=== PATIENT | female | born 1965 | race Two or more races ===

== ENCOUNTER 2016-10-07 00:57 | Emergency (ER) | payer MEDICAID ==
[2016-10-07] MEDS ORDERED: LORAZEPAM INJ 2 MG/1 ML VIAL IV ONE ×2 (01:24→02:02)
--- NOTE | 2016-10-07 01:29 | ER Document Report ---
ED General - General Chief Complaint: Asthma Exacerbation Stated Complaint: TROUBLE BREATHING Time Seen by Provider: 10/07/16 01:18 Notes: Patient is a 51-year-old female who presents with difficulty breathing. She is Kiswahili speaking. History at this time is obtained from the son-in-law who speaks good Icelandic. Patient is very anxious and tearful and therefore I do not think she would be able to cooperate with a spool maker at this time. Some loss of patients are having difficulty breathing tonight. She does have a CPAP at home. She does have a history of smoking. He does not think she has had many breathing issues in the past. He does not think she has a history of anxiety or panic attacks. She did have her recent thyroid surgery. She has not had fevers infections. No recent vomiting. He says that she is on pain medication because of the surgery. He says he thinks she has been taking it. TRAVEL OUTSIDE OF THE [place] IN LAST 30 DAYS: No - Related Data Allergies/Adverse Reactions: No Known Allergies Allergy (Verified 06/10/15 22:31) Home Medications: Current Home Medications Albuterol Sulfate [Proair HFA] 2 puff IH Q6HP PRN 10/07/16 [History] Hydrocodone/Acetaminophen [Hydrocodon-Acetaminophen 5-325] 1 - 2 tab PO Q6HP PRN 10/07/16 [History] Past Medical History - Social History Smoking Status: Current Every Day Smoker Frequency of alcohol use: None Drug Abuse: None Family History: Reviewed & Not Pertinent Patient has suicidal ideation: No Patient has homicidal ideation: No Neurological Medical History: Reports: Hx Migraine Renal/ Medical History: Denies: Hx Peritoneal Dialysis Musculoskeltal Medical History: Reports Hx Arthritis, Reports Hx Musculoskeletal Deformity Past Surgical History: Reports: Hx Appendectomy, Hx Section, Hx Orthopedic Surgery, Hx Thyroid Surgery Review of Systems - Review of Systems -: Yes ROS unobtainable due to patient's medical condition - Patient is panicking and does not speak Icelandic. Physical Exam - Vital signs Vitals: Temp Pulse Resp BP Pulse Ox 98.1 F 82 40 H 148/70 H 98 10/07/16 01:05 10/07/16 01:05 10/07/16 01:05 10/07/16 01:05 10/07/16 01:05 - Notes Notes: General Appearance: Well nourished, alert, cooperative, very anxious. Tearful. Tachypneic. Vitals: reviewed, See vital signs table. Head: no swelling or tenderness to the head Eyes: PERRL, EOMI, Conjuctiva clear Mouth: No decreasd moisture Throat: No tonsillar inflammation, No airway obstruction, No lymphadenopathy Neck: Supple, no neck tenderness, well-healed surgical scar on anterior neck. No swelling to neck. Lungs: Lung deutsch are completely clear. Good air exchange bilaterally. Pulse ox is 98 to 100% on room air. Heart: Normal rate, Regular rythm, No murmur, no rub Abdomen: Normal BS, soft, No rigidity, No abdominal tenderness, No guarding, no rebound, no abdominal masses, no organomegaly Extremities: strength 5/5 in all extremities, good pulses in all extremities, no swelling or tenderness in the extremities, no edema. Skin: warm, dry, appropriate color, no rash Neuro: Awake and alert. Course - Re-evaluation Re-evalutation: 10/07/16 02:13 After the Ativan patient is much more calm. I am able to get more information from her now. Family members in the room and is able to interpret. Patient says it hurts whenever she takes a deep breath on the left side. She has some pain left side of her chest but is much worse and seems to be exacerbated by the deep breaths. Symptoms that started tonight. On reevaluation her lung deutsch remain completely clear. Oxygen saturation was still 98% on room air. Due to her recent surgery and pleuritic chest pain I will obtain a CTA of her chest. We will check cardiac enzymes. Her EKG does not show any ischemic changes. She does have right bundle branch block. - Vital Signs Vital signs: Temp Pulse Resp BP Pulse Ox 98.1 F 82 14 119/77 97 10/07/16 01:05 10/07/16 01:05 10/07/16 04:15 10/07/16 04:00 10/07/16 04:15 - Laboratory Result Diagrams: 10/07/16 01:26 10/07/16 01:26 Laboratory results interpreted by me: 10/07/16 10/07/16 10/07/16 01:26 01:26 01:26 WBC 11.1 H Hgb 15.8 H Chloride 108 H Glucose 112 H Calcium 10.7 H Direct Bilirubin 0.5 H ALT 55 H - EKG Interpretation by Me Additional EKG results interpreted by me: 10/07/16 02:15 EKG is reviewed and interpreted by me. EKG shows normal sinus rhythm with rate of [address] segment elevation or depression. Patient does have a right bundle branch block. I do not have an old EKG for comparison. WV intervals within normal range. QTc intervals within normal range. QRS duration is prolonged. - Transfer of Care Notes: 10/07/16 04:28 The initial chief complaint with possible asthma exacerbation. Patient actually does not have a history of asthma. She does have history of smoking. Her doctor placed her on prednisone on August 25. She did bring the prescription bottle. The patient's son is a very good spool maker speaks good Icelandic. I did eventually attempt use [employer] to have an official medical tech. The spool maker I got with [employer] was not very efficient. I would ask a question the patient would give me a long answer that was several sentences long and then the spool maker would translate that into 2-3 words of Icelandic. I would ask a question to the patient and spool maker would not always asked a question and when that would prompt spool maker to ask a question she would then ask me again what I asked. There is obviously some barrier with spool maker herself. I therefore discontinue using the spool maker and asked the son if he would continue to interpret for me and he was glad to do so. The son would repeat things as I asked them and seemed very appropriate in his interpretation was definitely much better than the official medical tech provided by [employer] spool maker services. Patient says tonight she started feeling more short of breath. She became very upset and scared. She noticed pain in the left side of her chest every time she took a deep breath and therefore came to the ER. When she arrived she is very tearful and panicky. The Ativan did help improve that significantly. Patient's oxygenation in triage was 91%; however, when we placed her on a monitor with a normal Pap her oxygenation was always 98 to 100% while on room air. She never had an oxygen deficit. Her EKG and cardiac enzymes are completely negative. I did obtain a CTA because of the pleuritic chest pain and recent surgery. This was also negative. She is a smoker. The son says she smokes a lot. I suspect that she most likely has pleurisy. I will place her on Naprosyn. However preferred to take this with food. Informed the son that she should follow-up with her doctor on Sunday. I informed him to return to the ER if she has worsening difficulty breathing, worsening pain, fevers, or feels unwell. Patient and son agree with the plan she will be discharged home. Dictation of this chart was performed using voice recognition software; therefore, there may be some unintended grammatical errors. Discharge - Discharge Clinical Impression: Pleurisy Dyspnea Qualifiers: Dyspnea type: unspecified Qualified Code(s): R06.00 - Dyspnea, unspecified Condition: Good Disposition: HOME, SELF-CARE Additional Instructions: Please take the medication as prescribed. Please return to the ER immediately if you develop worsening difficulty breathing, fevers, or feel unwell. Please follow up with your doctor on Sunday for close reevaluation. Please take the medication with food. Prescriptions: Naproxen [Naprosyn 250 mg Tablet] 250 mg PO BID #20 tablet Forms: Return to Work
[2016-10-07 01:50] LABS: ABSOLUTE BASOPHILS # (AUTO) 0.1 10^3/uL (0.0-0.2); ABSOLUTE EOSINOPHILS # (AUTO) 0.2 10^3/uL (0.0-0.6); ABSOLUTE LYMPHOCYTES (AUTO) 1.9 10^3/uL (0.5-4.7); ABSOLUTE MONOCYTES (AUTO) 0.7 10^3/uL (0.1-1.4); ABSOLUTE NEUT (AUTO) 8.2 10^3/uL (1.7-8.2); BASOPHILS % (AUTO) 0.5 % (0-2); EOSINOPHILS % (AUTO) 1.8 % (0-6); HEMATOCRIT 46.1 % (36.0-47.0); HEMOGLOBIN 15.8 g/dL (12.0-15.5); HGB HCT DIFFERENCE 1.3; LYMPHOCYTES % (AUTO) 17.4 % (13-45); MEAN CORPUSCULAR HEMOGLOBIN 30.5 pg (27.0-33.4); MEAN CORPUSCULAR HGB CONC 34.2 g/dL (32.0-36.0); MEAN CORPUSCULAR VOLUME 89 fl (80-97); MONOCYTES % (AUTO) 6.4 % (3-13); RED BLOOD COUNT 5.17 10^6/uL (3.72-5.28); RED CELL DISTRIBUTION WIDTH 13.4 % (11.5-14.0); SEGMENTED NEUTROPHILS % (AUTO) 73.9 % (42-78); WHITE BLOOD COUNT 11.1 10^3/uL (4.0-10.5)
[2016-10-07 02:10] LABS: ANION GAP 12 (5-19); BLOOD UREA NITROGEN 12 mg/dL (7-20); CALCIUM 10.7 mg/dL (8.4-10.2); CARBON DIOXIDE 22 mmol/L (22-30); CHLORIDE 108 mmol/L (98-107); CREATININE RESULT 0.66 mg/dL (0.52-1.25); GLUCOSE 112 mg/dL (75-110); POTASSIUM 4.2 mmol/L (3.6-5.0); SODIUM 141.7 mmol/L (137-145)
[2016-10-07] MEDS ORDERED: NORMAL SALINE 1000 ML 1,000 ML IV ONE (02:12)
[2016-10-07 02:37] LABS: ALANINE AMINOTRANSFERASE 55 U/L (9-52); ALBUMIN 4.8 g/dL (3.5-5.0); ALKALINE PHOSPHATASE 88 U/L (38-126); ASPARTATE AMINO TRANSFERASE 31 U/L (14-36); BILIRUBIN,DIRECT 0.5 mg/dL (0.0-0.4); BILIRUBIN,TOTAL 0.6 mg/dL (0.2-1.3); CREATINE KINASE 99 U/L (30-135); TOTAL PROTEIN 8.2 g/dL (6.3-8.2)
[2016-10-07 02:49] LABS: CREATINE KINASE MB 1.11 ng/mL (<4.55)
[2016-10-07 02:52] LABS: TROPONIN I < 0.012 ng/mL
[2016-10-07 04:22] VITALS: BP 119/77
--- NOTE | 2016-10-07 17:40 | EKG REPORT ---
SEVERITY:- ABNORMAL ECG - SINUS RHYTHM RIGHT BUNDLE BRANCH BLOCK : Confirmed by: Kym Gracia MD 07-Oct-2016 17:39:59
== END 2016-10-07 04:29 | disposition home or self-care (01) ==
LOC: ER 00:57
DX: R09.1 Pleurisy (principal); F41.9 Anxiety disorder, unspecified; R06.82 Tachypnea, not elsewhere classified; I45.10 Unspecified right bundle-branch block; F17.200 Nicotine dependence, unspecified, uncomplicated; Z98.890 Other specified postprocedural states; Z79.52 Long term (current) use of systemic steroids
CPT/HCPCS: 93005; 96376; 99284; 96361; 96374; 36415; 82553; 82550; 85025; 80076; 80048; 84484; 71010; 71275; 93010; J2060; J7030

== ENCOUNTER 2016-12-25 16:57 | Emergency (ER) | payer SELFPAY ==
[2016-12-25 17:05] VITALS: BP 124/74
[2016-12-25] MEDS ORDERED: ASPIRIN 81 MG TABLET, CHEWABLE PO ONE (17:57)
--- NOTE | 2016-12-25 18:00 | ER Document Report ---
ED Medical Screen (RME) - General Chief Complaint: Chest Pain Stated Complaint: CHEST PAIN Time Seen by Provider: 12/25/16 17:57 Mode of Arrival: Wheelchair Information source: Patient, Relative Notes: 51-year-old female presents with complaints of chest pain. Patient notes it is under breast sharp pain. Patient is tearful states pain worsened after she saw an accident that her son was involved in today I have greeted and performed a rapid initial assessment of this patient. A comprehensive ED assessment and evaluation of the patient, analysis of test results and completion of the medical decision making process will be conducted by additional ED providers. PHYSICAL EXAMINATION: GENERAL: Well-appearing, well-nourished and in no acute distress. HEAD: Atraumatic, normocephalic. EYES: Pupils equal round extraocular movements intact, conjunctiva are normal. ENT: Nares patent NECK: Normal range of motion LUNGS: No respiratory distress Musculoskeletal: Normal range of motion NEUROLOGICAL: Normal speech, normal gait. PSYCH: Tearful SKIN: Warm, Dry, normal turgor, no rashes or lesions noted. TRAVEL OUTSIDE OF THE [place] IN LAST 30 DAYS: No - Related Data Allergies/Adverse Reactions: No Known Allergies Allergy (Verified 12/25/16 17:04) Past Medical History Neurological Medical History: Reports: Hx Migraine Renal/ Medical History: Denies: Hx Peritoneal Dialysis Musculoskeltal Medical History: Reports Hx Arthritis, Reports Hx Musculoskeletal Deformity Past Surgical History: Reports: Hx Appendectomy, Hx Section, Hx Orthopedic Surgery, Hx Thyroid Surgery Physical Exam - Vital signs Vitals: Temp Pulse Resp BP Pulse Ox 98.1 F 72 20 124/74 97 12/25/16 17:04 12/25/16 17:04 12/25/16 17:04 12/25/16 17:04 12/25/16 17:04 Course - Vital Signs Vital signs: Temp Pulse Resp BP Pulse Ox 98.1 F 72 20 124/74 97 12/25/16 17:04 12/25/16 17:04 12/25/16 17:04 12/25/16 17:04 12/25/16 17:04
[2016-12-25 18:25] LABS: ABSOLUTE BASOPHILS # (AUTO) 0.1 10^3/uL (0.0-0.2); ABSOLUTE EOSINOPHILS # (AUTO) 0.3 10^3/uL (0.0-0.6); ABSOLUTE LYMPHOCYTES (AUTO) 2.5 10^3/uL (0.5-4.7); ABSOLUTE MONOCYTES (AUTO) 0.7 10^3/uL (0.1-1.4); ABSOLUTE NEUT (AUTO) 5.6 10^3/uL (1.7-8.2); BASOPHILS % (AUTO) 0.6 % (0-2); EOSINOPHILS % (AUTO) 2.8 % (0-6); HEMATOCRIT 45.5 % (36.0-47.0); HEMOGLOBIN 15.7 g/dL (12.0-15.5); HGB HCT DIFFERENCE 1.6; LYMPHOCYTES % (AUTO) 27.6 % (13-45); MEAN CORPUSCULAR HEMOGLOBIN 31.3 pg (27.0-33.4); MEAN CORPUSCULAR HGB CONC 34.4 g/dL (32.0-36.0); MEAN CORPUSCULAR VOLUME 91 fl (80-97); MONOCYTES % (AUTO) 7.2 % (3-13); RED BLOOD COUNT 5.01 10^6/uL (3.72-5.28); RED CELL DISTRIBUTION WIDTH 13.9 % (11.5-14.0); SEGMENTED NEUTROPHILS % (AUTO) 61.8 % (42-78); WHITE BLOOD COUNT 9.1 10^3/uL (4.0-10.5)
--- NOTE | 2016-12-25 18:42 | RADIOLOGY REPORT (SQ) ---
EXAM DESCRIPTION: CHEST SINGLE VIEW COMPLETED DATE/TIME: 12/25/2016 6:25 pm REASON FOR STUDY: chest pain COMPARISON: 03/25/2014 EXAM PARAMETERS: NUMBER OF VIEWS: One view. TECHNIQUE: Single frontal radiographic view of the chest acquired. RADIATION DOSE: NA LIMITATIONS: None. FINDINGS: LUNGS AND PLEURA: There appear to be mild chronic interstitial changes. There is no infil trate or effusion. There is no mass. MEDIASTINUM AND HILAR STRUCTURES: No masses. Contour normal. HEART AND VASCULAR STRUCTURES: Heart normal in size. Normal vasculature. BONES: No acute findings. HARDWARE: None in the chest. OTHER: No other significant finding. IMPRESSION: Mild chronic lung changes with no acute cardiopulmonary disease. TECHNICAL DOCUMENTATION: JOB ID: [id number]
[2016-12-25 18:48] LABS: ALANINE AMINOTRANSFERASE 80 U/L (9-52); ALBUMIN 4.9 g/dL (3.5-5.0); ALKALINE PHOSPHATASE 79 U/L (38-126); ANION GAP 12 (5-19); ASPARTATE AMINO TRANSFERASE 46 U/L (14-36); BILIRUBIN,DIRECT 0.3 mg/dL (0.0-0.4); BILIRUBIN,TOTAL 0.5 mg/dL (0.2-1.3); BLOOD UREA NITROGEN 14 mg/dL (7-20); CALCIUM 9.9 mg/dL (8.4-10.2); CARBON DIOXIDE 25 mmol/L (22-30); CHLORIDE 106 mmol/L (98-107); CREATINE KINASE 93 U/L (30-135); CREATININE RESULT 0.63 mg/dL (0.52-1.25); GLUCOSE 95 mg/dL (75-110); POTASSIUM 4.3 mmol/L (3.6-5.0); SODIUM 142.5 mmol/L (137-145); TOTAL PROTEIN 8.5 g/dL (6.3-8.2)
[2016-12-25 19:00] LABS: CREATINE KINASE MB 1.64 ng/mL (<4.55)
[2016-12-25 19:01] LABS: TROPONIN I < 0.012 ng/mL
--- NOTE | 2016-12-26 08:31 | EKG REPORT ---
SEVERITY:- ABNORMAL ECG - SINUS RHYTHM RIGHT BUNDLE BRANCH BLOCK : Confirmed by: Brit Caldwell 26-Dec-2016 08:30:30
== END 2016-12-25 19:19 | disposition left against medical advice (07) ==
LOC: ER 16:57
DX: Z53.9 Procedure and treatment not carried out, unspecified reason (principal); R07.9 Chest pain, unspecified
CPT/HCPCS: 36415; 71010; 80053; 82550; 82553; 84484; 85025; 93005; 93010; 99281

== ENCOUNTER 2017-09-25 10:56 | Emergency (ER) | payer OTHER ==
[2017-09-25] MEDS ORDERED: PROCHLORPERAZINE EDISYLATE INJ 10 MG/2 ML VIAL IV ONE (11:21)
[2017-09-25] MEDS ORDERED: DIPHENHYDRAMINE HCL 50 MG/ML VIAL IV ONE (11:21)
--- NOTE | 2017-09-25 12:34 | ER Document Report ---
ED General - General Chief Complaint: Headache Stated Complaint: HEADACHE Time Seen by Provider: 09/25/17 11:11 TRAVEL OUTSIDE OF THE [place] IN LAST 30 DAYS: No - HPI Notes: Note that area attendant services are used. Patient speaks Wolof, her daughter speaks some Mohawk. 52-year-old female with a history of intermittent severe recurrent headaches. This is been ongoing since she had some type of cervical fusion and hardware placement a couple of years ago. She has had recurrent of her stereotypical headache which is diffuse bifrontal, biparietal, bioccipital and into her neck. No recent trauma. No fever, chills or sweats. States that the top of her head feels "hot" but this is otherwise poorly described. According to the patient and her daughter this is a stereotypical presentation of her typical breakthrough pain. She is taking pain medicine at home include hydrocodone but is not helping. Nonradiating. Gradual onset. No other modifying factors, no other associated symptoms, no other provocative or palliative factors. - Related Data Allergies/Adverse Reactions: No Known Allergies Allergy (Verified 09/25/17 11:07) Past Medical History - Social History Smoking Status: Unknown if Ever Smoked Chew tobacco use (# tins/day): No Frequency of alcohol use: None Drug Abuse: None Family History: Reviewed & Not Pertinent Patient has suicidal ideation: No Patient has homicidal ideation: No - Medical History Medical History: Other Notes: Includes previous cervical spine surgery Neurological Medical History: Reports: Hx Migraine Renal/ Medical History: Denies: Hx Peritoneal Dialysis Musculoskeltal Medical History: Reports Hx Arthritis, Reports Hx Musculoskeletal Deformity Past Surgical History: Reports: Hx Appendectomy, Hx Section, Hx Orthopedic Surgery, Hx Thyroid Surgery Review of Systems - Review of Systems Notes: Review of systems as in the history of present illness, otherwise negative. Physical Exam - Vital signs Vitals: Temp Pulse Resp BP Pulse Ox 97.7 F 65 18 134/93 H 97 09/25/17 11:09 09/25/17 11:09 09/25/17 11:09 09/25/17 11:09 09/25/17 11:09 - Notes Notes: General: Well developed . Moderate distress HEENT: Normocephalic, atraumatic. Pupils equal round reactive to light. No JVD. Chest: No trauma. Respiratory: Good air exchange, normal excursion. Cardiac: Regular rhythm. No murmurs or gallops. Abdomen: Soft, benign. Nondistended. Nontender. Back: No asymmetry or gross abnormality. Motor: Grossly normal power and tone. Neurologic: Alert, nonfocal. Cranial nerves II-12 are intact. Sensation intact. Vascular: Well perfused. Normal peripheral pulses. Skin: No petechiae or purpura. Course - Re-evaluation Re-evalutation: 09/25/17 12:33 52-year-old female with the after mentioned symptoms. This appears to be a history typical presentation for breakthrough headaches for which she has not followed up. This time going to treat her with Compazine and diphenhydramine, IV fluids, serial examination. Her request will obtain plain films of the cervical spine evaluate hardware placement. 09/25/17 15:55 Patient has had marked improvement in her symptoms, is resting comfortably at this time. C-spine x-rays are unremarkable. Discharged home to follow-up closely with primary care physician. - Vital Signs Vital signs: Temp Pulse Resp BP Pulse Ox 98.7 F 72 18 133/68 H 96 09/25/17 14:05 09/25/17 14:05 09/25/17 14:05 09/25/17 14:05 09/25/17 14:05 Discharge - Discharge Clinical Impression: Headache Qualifiers: Headache type: unspecified Headache chronicity pattern: acute headache Intractability: intractable Qualified Code(s): R51 - Headache Disposition: HOME, SELF-CARE Instructions: Headache ([facility]) Additional Instructions: See your primary care doctor one to two days
--- NOTE | 2017-09-25 12:53 | RADIOLOGY REPORT (SQ) ---
EXAM DESCRIPTION: CERV SP 3 VIEW OR LESS COMPLETED DATE/TIME: 09/25/2017 12:32 pm REASON FOR STUDY: Severe pain, eval hardware, no trauma COMPARISON: April 2016 NUMBER OF VIEWS: Two views. TECHNIQUE: AP and lateral radiographic images acquired of the cervical spine. LIMITATIONS: None. FINDINGS: MINERALIZATION: Normal. ALIGNMENT: Anatomic. VERTEBRAE: Vertebral bodies of normal height. DISCS: Disc spacers are again identified at the C3-C4, C4-C5, C5-C6 disc space levels. HARDWARE: Anterior orthopedic plate transfixed by orthopedic screws is identified extending from the C3 to the C6 level. SOFT TISSUES: No masses or calcifications. Lung apices clear. OTHER: No other significant finding. IMPRESSION: Stable appearing postsurgical changes. No other significant findings. TECHNICAL DOCUMENTATION: JOB ID: [id number] [employer]- All Rights Reserved Reading location - IP/workstation name: [email or web address]
[2017-09-25 14:08] VITALS: BP 133/68
== END 2017-09-25 14:00 | disposition home or self-care (01) ==
LOC: ER 10:56
DX: R51 Headache (principal); Z98.1 Arthrodesis status
CPT/HCPCS: 99284; 96374; 96375; 72040; J1200; J0780

== ENCOUNTER 2018-11-08 21:20 | Emergency (ER) | payer SELFPAY ==
--- NOTE | 2018-11-08 22:09 | ER Document Report ---
ED Medical Screen (RME) - General Chief Complaint: Headache Stated Complaint: HEADACHE Time Seen by Provider: 11/08/18 22:07 Notes: Patient is a 53-year-old female who presents emergency department with a chief complaint of a headache. Her headache is on top of her head. She also notes some tongue numbness and numbness in her fingers. She states that she has had her symptoms for the past 2 months, but over the last couple weeks she feels like her symptoms have gotten worse. She is eating and drinking with no difficulty. She had neck surgery 4 years ago in [place]. Exam: Tenderness noted to top of head. I have greeted and performed a rapid initial assessment of this patient. A comprehensive ED assessment and evaluation of the patient, analysis of test results and completion of medical decision making process will be conducted by an additional ED providers. TRAVEL OUTSIDE OF THE [place] IN LAST 30 DAYS: No - Related Data Allergies/Adverse Reactions: No Known Allergies Allergy (Verified 09/25/17 11:07) Past Medical History Neurological Medical History: Reports: Hx Migraine Renal/ Medical History: Denies: Hx Peritoneal Dialysis Musculoskeltal Medical History: Reports Hx Arthritis, Reports Hx Musculoskeletal Deformity Past Surgical History: Reports: Hx Appendectomy, Hx Section, Hx Orthopedic Surgery, Hx Thyroid Surgery Physical Exam - Vital signs Vitals: Temp Pulse Resp BP Pulse Ox 98.6 F 70 28 H 137/76 H 95 11/08/18 21:32 11/08/18 21:32 11/08/18 21:32 11/08/18 21:32 11/08/18 21:32 Course - Vital Signs Vital signs: Temp Pulse Resp BP Pulse Ox 97.7 F 58 L 20 137/64 H 93 11/09/18 02:26 11/09/18 02:26 11/09/18 02:26 11/09/18 02:26 11/09/18 02:26 - Laboratory Result Diagrams: 11/08/18 23:33 11/08/18 23:33 Laboratory results interpreted by me: 11/08/18 23:33 Glucose 171 H Doctor's Discharge - Discharge Clinical Impression: Paresthesias, Headache Condition: Good Disposition: HOME, SELF-CARE Additional Instructions: Your CT scan labs are normal today. The exact cause of your symptoms is uncertain. Return if you develop progression of your symptoms, focal weakness, loss of sensation, difficulty walking, pass out, develop a fever greater than 101 F, or have any other symptoms that are worrisome to you. I recommend you follow-up with [facility]. (+1) [phone]
[2018-11-08 23:42] LABS: ABSOLUTE EOSINOPHILS # (AUTO) 0.2 10^3/uL (0.0-0.6); ABSOLUTE LYMPHOCYTES (AUTO) 3.5 10^3/uL (0.5-4.7); ABSOLUTE MONOCYTES (AUTO) 0.6 10^3/uL (0.1-1.4); ABSOLUTE NEUT (AUTO) 3.5 10^3/uL (1.7-8.2); BASOPHILS % (AUTO) 0.6 % (0-2); HEMOGLOBIN 15.4 g/dL (12.0-15.5); LYMPHOCYTES % (AUTO) 44.4 % (13-45); MEAN CORPUSCULAR HEMOGLOBIN 31.1 pg (27.0-33.4); MEAN CORPUSCULAR HGB CONC 34.2 g/dL (32.0-36.0); MEAN CORPUSCULAR VOLUME 91 fl (80-97); MONOCYTES % (AUTO) 7.7 % (3-13); PLATELET COUNT 225 10^3/uL (150-450); RED BLOOD COUNT 4.95 10^6/uL (3.72-5.28); RED CELL DISTRIBUTION WIDTH 13.8 % (11.5-14.0); SEGMENTED NEUTROPHILS % (AUTO) 44.3 % (42-78); TOTAL CELLS COUNTED % (AUTO) 100 %; WHITE BLOOD COUNT 7.8 10^3/uL (4.0-10.5)
--- NOTE | 2018-11-09 | RADIOLOGY REPORT (SQ) ---
EXAM DESCRIPTION: CT HEAD WITHOUT IV CONTRAST COMPLETED DATE/TME: 11/08/2018 22:22 CLINICAL HISTORY: 53 years, Female, numbness and tingling of tongue and fingers COMPARISON: None. TECHNIQUE: Noncontrast CT of the head was performed. Coronal and sagittal reformations were created. Images stored on PACS. All CT scanners at this facility use dose modulation, iterative reconstruction, and/or weight based dosing when appropriate to reduce radiation dose to as low as reasonably achievable (ALARA). [facility]: Dose Right [facility]: CareDose [facility]: Dose Right [facility]: Teradose 4D [facility]: Chicfy LIMITATIONS: None. FINDINGS: Brain parenchyma is normal in attenuation. No acute intracranial hemorrhage, mass effect, or extra-axial fluid is seen. The ventricles, sulci, and basilar cisterns are normal in size and configuration. Globes and orbits are normal. Paranasal sinuses and mastoid air cells are clear. There are no depressed skull fractures. IMPRESSION: No acute intracranial abnormality. TECHNICAL DOCUMENTATION: Quality ID # [id number]: Final reports with documentation of one or more dose reduction techniques (e.g., Automated exposure control, adjustment of the mA and/or kV according to patient size, use of iterative reconstruction technique) copyright 2010 [employer]- All Rights Reserved
[2018-11-09 00:02] LABS: ALANINE AMINOTRANSFERASE 36 U/L (9-52); ALBUMIN 4.4 g/dL (3.5-5.0); ALKALINE PHOSPHATASE 70 U/L (38-126); ANION GAP 10 (5-19); ASPARTATE AMINO TRANSFERASE 25 U/L (14-36); BILIRUBIN,DIRECT 0.2 mg/dL (0.0-0.4); BILIRUBIN,TOTAL 0.3 mg/dL (0.2-1.3); BLOOD UREA NITROGEN 15 mg/dL (7-20); CALCIUM 9.6 mg/dL (8.4-10.2); CARBON DIOXIDE 24 mmol/L (22-30); CHLORIDE 107 mmol/L (98-107); GLUCOSE 171 mg/dL (75-110); POTASSIUM 3.9 mmol/L (3.6-5.0); SODIUM 140.8 mmol/L (137-145); TOTAL PROTEIN 7.2 g/dL (6.3-8.2)
[2018-11-09 02:27] VITALS: BP 137/64
--- NOTE | 2018-11-09 02:40 | ER Document Report ---
ED General - General Chief Complaint: Headache Stated Complaint: HEADACHE Time Seen by Provider: 11/08/18 22:07 Notes: Patient is a 53-year-old female who presents with complaints of 3 to 4 years of tingling in her fingertips, toes and tongue with associated headaches. The patient states that the symptoms have been ongoing constantly ever since she had neck surgery 3 to 4 years ago at [facility]. The patient has not had follow-up with her neurologist or any other doctor regarding this issue and is unable to clarify exactly why she came to the emergency department tonight. She is clear to state that the symptoms are not otherwise new or different. No exacerbating or alleviating factors. Regards symptoms being mild to moderate. Constant in nature. Denies loss of sensation, focal weakness, syncope, fever confusion. TRAVEL OUTSIDE OF THE [place] 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 HENT: Negative for sore throat. Eyes: Negative for visual changes. Cardiovascular: Negative for chest pain. Respiratory: Negative for shortness of breath. Gastrointestinal: Negative for abdominal pain, vomiting or diarrhea. Genitourinary: Negative for dysuria. Musculoskeletal: Negative for back pain. Skin: Negative for rash. Neurological: Positive for headache, diffuse paresthesias 10 point ROS negative except as marked above and in HPI. Physical Exam - Vital signs Vitals: Temp Pulse Resp BP Pulse Ox 98.6 F 70 28 H 137/76 H 95 11/08/18 21:32 11/08/18 21:32 11/08/18 21:32 11/08/18 21:32 11/08/18 21:32 Interpretation: Tachypneic - Resolved at the time of my assessment with a respiratory rate of 18 Notes: PHYSICAL EXAMINATION: GENERAL: Well-appearing, well-nourished and in no acute distress. HEAD: Atraumatic, normocephalic. EYES: Pupils equal round and reactive to light, extraocular movements intact, sclera anicteric, conjunctiva are normal. ENT: nares patent, oropharynx clear without exudates. Moist mucous membranes. NECK: Normal range of motion, supple without lymphadenopathy LUNGS: Breath sounds clear to auscultation bilaterally and equal. No wheezes rales or rhonchi. HEART: Regular rate and rhythm without murmurs ABDOMEN: Soft, nontender, normoactive bowel sounds. No guarding, no rebound. No masses appreciated. EXTREMITIES: Normal range of motion, no pitting or edema. No cyanosis. NEUROLOGICAL: Face symmetric. Tongue protrudes midline. Extraocular motions intact. Pupils are 2 mm and equally reactive. Normal speech, normal gait. 5 out of 5 strength in both the distal and proximal upper and lower extremities bilaterally. Sensation is grossly intact throughout. Finger to nose testing normal. Pronator drift normal. PSYCH: Normal mood, normal affect. SKIN: Warm, Dry, normal turgor, no rashes or lesions noted. Course - Re-evaluation Re-evalutation: 11/09/18 02:22 Patient presents with a headache, paresthesias in all of her fingertips, her tongue, her toes all of which has been going on for greater than 3 years. Labs, CT head unremarkable. No neurologic deficits on exam. Given long duration of patient's symptoms do not suspect that this is from any acute life-threatening or neurologically devastating condition. I have advised that the patient follows up with neurology as an outpatient given the long duration of her sympto ms. At this time will discharge with return precautions and follow-up recommendations. Verbal discharge instructions given a the bedside and opportunity for questions given. Medication warnings reviewed. Patient is in agreement with this plan and has verbalized understanding of return precautions and the need for primary care follow-up in the next 24-72 hours. - Vital Signs Vital signs: Temp Pulse Resp BP Pulse Ox 97.7 F 58 L 20 137/64 H 93 11/09/18 02:26 11/09/18 02:26 11/09/18 02:26 11/09/18 02:26 11/09/18 02:26 - Laboratory Result Diagrams: 11/08/18 23:33 11/08/18 23:33 Laboratory results interpreted by me: 11/08/18 23:33 Glucose 171 H - Diagnostic Test Radiology reviewed: Image reviewed, Reports reviewed Radiology results interpreted by me: 11/09/18 04:58 CT head: No acute intracranial bleed or mass Discharge - Discharge Clinical Impression: Paresthesias Headache Qualifiers: Headache type: unspecified Headache chronicity pattern: acute headache Intractability: not intractable Qualified Code(s): R51 - Headache Condition: Good Disposition: HOME, SELF-CARE Additional Instructions: Your CT scan labs are normal today. The exact cause of your symptoms is uncertain. Return if you develop progression of your symptoms, focal weakness, loss of sensation, difficulty walking, pass out, develop a fever greater than 101 F, or have any other symptoms that are worrisome to you. I recommend you follow-up with [facility] neurology. [phone]) [phone]
== END 2018-11-09 02:46 | disposition home or self-care (01) ==
LOC: ER 21:20
DX: R51 Headache (principal); R20.2 Paresthesia of skin; Z98.890 Other specified postprocedural states; Z86.69 Personal history of other diseases of the nervous system and sense organs
CPT/HCPCS: 36415; 70450; 80053; 85025; 99284